=== PATIENT | male | born 1985 | race Caucasian/White ===

== ENCOUNTER 2022-01-03 01:45 | Emergency (ER) | payer MEDICAID ==
[~2022-01-03 01:45] MED LIST: ATARAX,VISTARIL50 MG PO; CARBIDOPA/LEVOD1 TA1 PO; FLEXERIL5 MG PO; MOTRIN800 MG PO; MULTIVITAMIN1 TA1 PO; NICOTINE T21 MG/24 H T; NICOTINE T21 MG/24 H TD; ONDANSETRON HYDR4 M1 PO; OXYCODONE5 MG PO; ROBAXIN-750750 MG PO; ROBAXIN750 MG PO; THERA1 TAB PO; TYLENOL EXTRA500 M1 PO; ZITHROMAX Z PA250 MG PO; ZOFRAN 4 MG ED2 TAB PO; ZOFRAN4 MG PO
== END 2022-01-03 02:18 ==
LOC: ED 01:45
DX: I46.9 Cardiac arrest, cause unspecified (principal); Z91.030 Bee allergy status; Z88.8 Allergy status to other drugs, medicaments and biological substances